=== PATIENT | female | born 1945 | race Caucasian/White ===

== ENCOUNTER 2020-01-15 12:06 | Emergency (ER) | payer OTHER ==
--- NOTE | 2020-01-15 13:02 | RAD REPORT ---
EXAM DESCRIPTION: RAD - Pelvis - 01/15/2020 12:46 pm CLINICAL HISTORY: TRAUMA COMPARISON: None FINDINGS: AP pelvis and left hip- multiple projections Lucency is seen in the inferior pubic ramus on the left, suspicious for nondisplaced. Left hip appear s intact.
[2020-01-15] MEDS ORDERED: HYDROCODONE/APAP 5/325 MG TAB ONE (13:45)
--- NOTE | 2020-01-15 14:18 | RAD REPORT ---
EXAM DESCRIPTION: RAD - Femur Left - 01/15/2020 2:09 pm CLINICAL HISTORY: PAIN COMPARISON: Hip Left 2 View dated 01/15/2020 FINDINGS: No fracture or dislocation is seen.
--- NOTE | 2020-01-15 14:26 | ER ---
Nurse's Notes [facility] Name: Deana Garland Age: 74 yrs Sex: Female : 1945 Arrival Date: 01/15/2020 Time: 12:06 Bed 13 Private MD: Mika Gong H Diagnosis: Fracture of other parts of pelvis-nondisplaced inferior pubic ramus fracture Presentation: 01/14 12:14 Chief complaint: Left hip pain after mechanical fall from standing 4 days ago. Unable hb to bear weight on left leg. Denies other injuries. Coronavirus screen: Proceed with normal triage. Ebola Screen: No symptoms or risks identified at this time. Initial Sepsis Screen: Does the patient meet any 2 criteria? No. Patient's initial sepsis screen is negative. Does the patient have a suspected source of infection? No. Patient's initial sepsis screen is negative. Risk Assessment: Do you want to hurt yourself or someone else? Patient reports no desire to harm self or others. Onset of symptoms was January 01, 2020. 12:14 Method Of Arrival: Wheelchair 12:14 Acuity: TRAVIS 3 hb 12:38 Care prior to arrival: None. Mechanism of Injury: Fall. Trauma event details: Injury ll1 occurred in the [facility]. Trauma Activation: Not Applicable Physician: ED Physician; Name: ; Notified At: ; Arrived At: Physician: General Surgeon; Name: ; Notified At: ; Arrived At: Physician: Radiology; Name: ; Notified At: ; Arrived At: Physician: Respiratory; Name: ; Notified At: ; Arrived At: Physician: Lab; Name: ; Notified At: ; Arrived At: 12:38 fall Sunday ll1 Historical: - Allergies: 12:17 Neosporin ([id number]); hb - Immunization history:: Adult Immunizations up to date. - Social history:: Smoking status: Patient denies any tobacco usage or history of. - Immunization history: Last tetanus immunization:. Screenin:30 Abuse screen: Denies threats or abuse. Nutritional screening: No deficits noted. ll1 Tuberculosis screening: No symptoms or risk factors identified. Fall Risk Fall in past 12 months (25 points). Ambulatory Aid- Crutches/Cane/Walker (15 pts). Gait- Impaired (20 pts.). Total Steward Fall Scale indicates High Risk Score (45 or more points). Fall prevention measures have been instituted. Side Rails Up X 2 Frequent Obs/Assessments Occuring As available patient and family educated on Fall Prevention Program and Strategies. Primary Survey: 12:30 NO uncontrolled hemorrhage observed. A: The patient is alert. Airway: patent, Trachea ll1 midline. Breathing/Chest: Respiratory pattern: regular, Respiratory effort: spontaneous, unlabored, Breath sounds: clear, Chest inspection: symmetrical rise and fall of the chest. Circulation: Pulses: palpable right radial artery, right posterior tibial artery, left radial artery and left posterior tibial artery. Skin color: pink, Skin temperature: warm. Disability Alert. Exposure/Environment: A warming method has been applied: A warm blanket has been provided to the patient. 14:00 Reassessment Breathing/Chest Respiratory pattern Regular Respiratory effort Spontaneous vc Breath sounds Clear Chest inspection Symmetrical Circulation Color [place] Temperature Warm Disability Alert. Assessment: 12:28 General: Appears in no apparent distress. Behavior is calm, cooperative. Pain: ll1 Complains of pain in left hip. Neuro: No deficits noted. Cardiovascular: No deficits noted. Respiratory: No deficits noted. Musculoskeletal: Circulation, motion, and sensation intact. Capillary refill < 3 seconds, Reports pain in left hip. Injury Description: fall. 13:25 Reassessment: Patient appears in no apparent distress at this time. No changes from ll1 previously documented assessment. Patient and/or family updated on plan of care and expected duration. Pain level reassessed. Patient is alert, oriented x 3, equal unlabored respirations, skin warm/dry/pink. 14:40 Reassessment: Patient appears in no apparent distress at this time. Patient and/or vc family updated on plan of care and expected duration. Pain level reassessed. Patient is alert, oriented x 3, equal unlabored respirations, skin warm/dry/pink. Discharge pending due to waiting on materials to bring a walker that is correct height. Patient states symptoms have improved. Vital Signs: 12:14 BP 122 / 83; Pulse 71; Resp 16; Temp 97.2; Pulse Ox 100% on R/A; Weight 79.38 kg; hb Height 5 ft. 7 in. (170.18 cm); Pain 10/10; 14:30 BP 120 / 80; Pulse 75; Resp 16; Pulse Ox 100% ; vc 12:14 Body Mass Index 27.41 (79.38 kg, 170.18 cm) hb Segundo Coma Score: 12:33 Eye Response: spontaneous(4). Verbal Response: oriented(5). Motor Response: obeys ll1 commands(6). Total: 15. Trauma Score (Adult): 12:33 Eye Response: spontaneous(1); Verbal Response: oriented(1); Motor Response: obeys ll1 commands(2); Systolic BP: > 89 mm Hg(4); Respiratory Rate: 10 to 29 per min(4); Segundo Score: 15; Trauma Score: 12 ED Course: 12:06 Patient arrived in ED. am2 12:07 Mika Gong MD is Private Physician. am2 12:13 Arturo Nicolas MD is Attending Physician. dorothy 12:15 Triage completed. hb 12:17 Arm band placed on. hb 12:27 Loli Gustafson RN is Primary Nurse. ll1 12:33 Patient has correct armband on for positive identification. Bed in low position. Call ll1 light in reach. Side rails up X 1. 12:38 Patient maintains SpO2 saturation greater than 95% on room air. Thermoregulation: warm ll1 blanket given to patient. 12:46 Pelvis XRAY In Process Unspecified. EDMS 12:46 Hip Left 2 View XRAY In Process Unspecified. EDMS 14:09 Femur Left XRAY In Process Unspecified. EDMS 14:25 Garry Rush MD is Referral Physician. dorothy 15:05 No provider procedures requiring assistance completed. Patient did not have IV access vc during this emergency room visit. Administered Medications: 13:59 Drug: Widen 5 mg-325 mg 1 tabs {Note: RASS 0.} Route: PO; ll1 14:45 Follow up: Response: No adverse reaction; Pain is decreased vc Outcome: 14:26 Discharge ordered by . dorothy 15:05 Discharged to home ambulatory, with walker vc 15:05 Condition: good 15:05 Discharge instructions given to patient, Instructed on discharge instructions, follow up and referral plans. the proper way to use a walker Demonstrated understanding of instructions, follow-up care, walking with a walker Prescriptions given X 1. 15:09 Patient left the ED. jp3 15:24 Patient's length of stay in the Emergency Department was greater than 2 hours. waiting vc on a walker to be delivered from materialsPatient's length of stay extended due to Signatures: Dispatcher [employer] EDArturo Oviedo MD MD cha Baxter, Heather RN RN Isa Blanco am2 Randy Santiago jp3 Zully Tillman RN RN vc Lewis, Lynsay, RN RN ll1 Corrections: (The following items were deleted from the chart) 12:22 12:14 Chief complaint: Left hip pain after fall from standing 4 days ago. Unable to hb bear weight on left leg. Denies other injuries. 15:20 14:00 Reassessment: Patient appears in no apparent distress at this time. Patient vc and/or family updated on plan of care and expected duration. Pain level reassessed. Patient is alert, oriented x 3, equal unlabored respirations, skin warm/dry/pink. Patient states symptoms have improved. vc
--- NOTE | 2020-01-15 14:27 | EDPHYS ---
Physician Documentation [facility] Name: Deana Garland Age: 74 yrs Sex: Female : 1945 Arrival Date: 01/15/2020 Time: 12:06 Bed 13 Private MD: Mika Gong H ED Physician Arturo Nicolas HPI: 01/14 12:28 This 74 yrs old Female presents to ER via Wheelchair with complaints of Fall dorothy Injury, Leg Pain. 12:28 Details of fall: The patient fell from an upright position, while walking. Onset: The dorotyh symptoms/episode began/occurred 3 day(s) ago. Associated injuries: The patient sustained left hip, left inner thigh and left upper thigh. Associated injuries: The patient sustained. Severity of symptoms: At their worst the symptoms were moderate, in the emergency department the symptoms are unchanged. The patient has not experienced similar symptoms in the past. Historical: - Allergies: 12:17 Neosporin ([id number]); hb - Immunization history:: Adult Immunizations up to date. - Social history:: Smoking status: Patient denies any tobacco usage or history of. - Immunization history: Last tetanus immunization:. ROS: 12:29 Constitutional: Negative for fever, chills, and weight loss, Eyes: Negative for injury, dorothy pain, redness, and discharge, ENT: Negative for injury, pain, and discharge, Neck: Negative for injury, pain, and swelling, Cardiovascular: Negative for chest pain, palpitations, and edema, Respiratory: Negative for shortness of breath, cough, wheezing, and pleuritic chest pain, Abdomen/GI: Negative for abdominal pain, nausea, vomiting, diarrhea, and constipation, Back: Negative for injury and pain, : Negative for injury, bleeding, discharge, and swelling, Skin: Negative for injury, rash, and discoloration, Neuro: Negative for headache, weakness, numbness, tingling, and seizure, Psych: Negative for depression, anxiety, suicide ideation, homicidal ideation, and hallucinations, Allergy/Immunology: Negative for hives, rash, and allergies, Endocrine: Negative for neck swelling, polydipsia, polyuria, polyphagia, and marked weight changes, Hematologic/Lymphatic: Negative for swollen nodes, abnormal bleeding, and unusual bruising. 12:29 MS/extremity: Positive for decreased range of motion, pain, tenderness, of the left femoral area and left hip. Exam: 12:29 Constitutional: This is a well developed, well nourished patient who is awake, alert, dorothy and in no acute distress. Head/Face: Normocephalic, atraumatic. Eyes: Pupils equal round and reactive to light, extra-ocular motions intact. Lids and lashes normal. Conjunctiva and sclera are non-icteric and not injected. Cornea within normal limits. Periorbital areas with no swelling, redness, or edema. ENT: Nares patent. No nasal discharge, no septal abnormalities noted. Tympanic membranes are normal and external auditory canals are clear. Oropharynx with no redness, swelling, or masses, exudates, or evidence of obstruction, uvula midline. Mucous membranes moist. Neck: Trachea midline, no thyromegaly or masses palpated, and no cervical lymphadenopathy. Supple, full range of motion without nuchal rigidity, or vertebral point tenderness. No Meningismus. Chest/axilla: Normal chest wall appearance and motion. Nontender with no deformity. No lesions are appreciated. Cardiovascular: Regular rate and rhythm with a normal S1 and S2. No gallops, murmurs, or rubs. Normal PMI, no JVD. No pulse deficits. Respiratory: Lungs have equal breath sounds bilaterally, clear to auscultation and percussion. No rales, rhonchi or wheezes noted. No increased work of breathing, no retractions or nasal flaring. Abdomen/GI: Soft, non-tender, with normal bowel sounds. No distension or tympany. No guarding or rebound. No evidence of tenderness throughout. Back: No spinal tenderness. No costovertebral tenderness. Full range of motion. Female : Normal external genitalia. Skin: Warm, dry with normal turgor. Normal color with no rashes, no lesions, and no evidence of cellulitis. Neuro: Awake and alert, GCS 15, oriented to person, place, time, and situation. Cranial nerves II-XII grossly intact. Motor strength 5/5 in all extremities. Sensory grossly intact. Cerebellar exam normal. Normal gait. Psych: Awake, alert, with orientation to person, place and time. Behavior, mood, and affect are within normal limits. 12:29 Musculoskeletal/extremity: Extremities: grossly normal except: noted in the left hip and left upper thigh and left femoral area and left leg: decreased ROM, pain, tenderness, ROM: limited active range of motion due to pain, limited passive range of motion due to pain, Circulation is intact in all extremities. Sensation intact. Compartment Syndrome exam of affected extremity: is normal. Weight bearing: is unable to bear weight, DVT Exam: no swelling, negative Homans' sign noted on exam, no appreciated bluish discoloration, no erythema, no increased warmth, pain, tenderness. Vital Signs: 12:14 BP 122 / 83; Pulse 71; Resp 16; Temp 97.2; Pulse Ox 100% on R/A; Weight 79.38 kg; hb Height 5 ft. 7 in. (170.18 cm); Pain 10/10; 14:30 BP 120 / 80; Pulse 75; Resp 16; Pulse Ox 100% ; vc 12:14 Body Mass Index 27.41 (79.38 kg, 170.18 cm) hb [place] Coma Score: 12:33 Eye Response: spontaneous(4). Verbal Response: oriented(5). Motor Response: obeys ll1 commands(6). Total: 15. Trauma Score (Adult): 12:33 Eye Response: spontaneous(1); Verbal Response: oriented(1); Motor Response: obeys ll1 commands(2); Systolic BP: > 89 mm Hg(4); Respiratory Rate: 10 to 29 per min(4); Segundo Score: 15; Trauma Score: 12 MDM: 12:17 Patient medically screened. [facility] 12:34 Differential diagnosis: hip fracture, intertrochanteric fracture, femoral neck dorothy fracture, bursitis, arthritis, strain. Differential diagnosis: closed head injury, fracture, sprain, strain. Data interpreted: monitoring specialist: not applicable for this patient encounter. Test interpretation: by ED physician or midlevel provider: plain radiologic studies. ED course: fall on Sunday , slipped in kitchen, not been able to bear weight since Sunday, hit head too , no loc, no blood thinners, no neck pain. 12:36 Data reviewed: radiologic studies, plain films. [facility] 13:28 ED course: inferior pubic ramus fx, non displaced, dw pt and walker use, know to follow dorothy up. 14:24 Counseling: I had a detailed discussion with the patient and/or guardian regarding: the [facility] historical points, exam findings, and any diagnostic results supporting the discharge/admit diagnosis, radiology results, the need for outpatient follow up. ED course: pt uses walker without difficulty, ambulates good, stable, will follow up , informed. 01/14 12:27 Order name: Pelvis XRAY; Complete Time: 13:31 [facility] 01/14 12:27 Order name: Hip Left 2 View XRAY [facility] 01/14 13:21 Order name: Femur Left XRAY [facility] 01/14 13:22 Order name: Misc. Order: walker, walk patient; Complete Time: 14:00 [facility] 01/14 13:30 Order name: Misc. Order: ambulate pt with walker; Complete Time: 14:50 [facility] Administered Medications: 13:59 Drug: Sherrill 5 mg-325 mg 1 tabs {Note: RASS 0.} Route: PO; ll1 14:45 Follow up: Response: No adverse reaction; Pain is decreased vc Disposition: 01/15/20 14:26 Discharged to Home. Impression: Fracture of other parts of pelvis - nondisplaced inferior pubic ramus fracture. - Condition is Stable. - Discharge Instructions: Simple Pelvic Fracture, Adult. - Prescriptions for Tylenol- Codeine #3 300-30 mg Oral Tablet - take 2 tablets by ORAL route every 6 hours As needed; 24 tablet. - Medication Reconciliation Form, Thank You Letter, Antibiotic Education, Prescription Opioid Use form. - Follow up: Private Physician; When: 2 - 3 days; Reason: Recheck today's complaints, Continuance of care, Re-evaluation by your physician. Follow up: Garry Rush; When: 2 - 3 days; Reason: Recheck today's complaints, Re-evaluation by your physician. - Problem is new. - Symptoms have improved. Signatures: Dispatcher [employer] EDMS Arturo Nicolas MD MD cha Mickail, Joel, PA PA jmm Baxter, Heather, RN RN hb Pisarski, Jacob 3 Zully Tillman RN RN vc Lewis, Lynsay, RN RN ll1 Corrections: (The following items were deleted from the chart) 15:09 14:26 01/15/2020 14:26 Discharged to Home. Impression: Fracture of other parts of jp3 pelvis - nondisplaced inferior pubic ramus fracture. Condition is Stable. Discharge Instructions: Simple Pelvic Fracture, Adult. Prescriptions for Tylenol-Codeine #3 300-30 mg Oral Tablet - take 2 tablets by ORAL route every 6 hours As needed; 24 tablet. and Forms are Medication Reconciliation Form, Thank You Letter, Antibiotic Education, Prescription Opioid Use. Follow up: Private Physician; When: 2 - 3 days; Reason: Recheck today's complaints, Continuance of care, Re-evaluation by your physician. Follow up: Garry Rush; When: 2 - 3 days; Reason: Recheck today's complaints, Re-evaluation by your physician. Problem is new. Symptoms have improved. dorothy
[2020-01-15 15:20] VITALS: BP 122/83; TEMP 97.2; O2SAT 100
--- NOTE | 2020-01-18 10:56 | RAD REPORT ---
EXAM DESCRIPTION: RAD - Hip Left 2 View - 01/15/2020 12:46 pm CLINICAL HISTORY: TRAUMA COMPARISON: None FINDINGS: AP pelvis and left hip- multiple projections Lucency is seen in the inferior pubic ramus on the left, suspicious for nondisplaced. Left hip appear s intact.
== END 2020-01-15 15:09 | disposition home or self-care (01) ==
LOC: ER 12:06
DX: S32.592A Other specified fracture of left pubis, initial encounter for closed fracture (principal); W19.XXXA Unspecified fall, initial encounter; Y93.01 Activity, walking, marching and hiking; Y92.9 Unspecified place or not applicable; Z88.3 Allergy status to other anti-infective agents
CPT/HCPCS: 72170; 99284

== ENCOUNTER 2020-12-01 19:19 | Emergency (ER) | payer OTHER ==
[2020-12-01 22:45] LABS: Basophils % 0.3 % (0-1.3); Hematocrit 43.1 % (36.0-45.0); Lymphocytes % 6.7 % (15.3-44.8); MPV 8.1 fL (7.6-11.3); RBC Red Blood Cell Count 4.87 M/uL (3.86-4.86)
[2020-12-01 23:04] LABS: Protime INR 0.96
[2020-12-01 23:11] LABS: ALT/SGPT 18 U/L (12-78); AST/SGOT 12 U/L (15-37); BUN Blood Urea Nitrogen 8 mg/dL (7-18); Bicarbonate 24 mmol/L (21-32); Bilirubin Direct 0.1 mg/dL (0-0.2); Bilirubin Total 0.5 mg/dL (0.2-1.0); Glucose Level 102 mg/dL (74-106); Lipase 75 U/L (73-393); Potassium 3.9 mmol/L (3.5-5.1); Protein, Total 7.5 g/dL (6.4-8.2); Sodium Level 137 mmol/L (136-145)
[2020-12-01 23:12] LABS: Alkaline Phosphatase ND U/L (45-117)
[2020-12-01] MEDS ORDERED: NA CHLORIDE 0.9% 500 ML ONE (23:13)
[2020-12-01] MEDS ORDERED: MORPHINE 2 MG/ML SYR ONE (23:13)
[2020-12-01] MEDS ORDERED: ONDANSETRON 4 MG/2 ML VIAL ONE (23:13)
[2020-12-02] MEDS ORDERED: METRONIDAZOLE 500mg IVPB 500 MG/100 ML BAG IV ONE (00:42)
[2020-12-02] MEDS ORDERED: CIPROFLOXACIN 400mg IV 400 MG/200 ML BAG IV ONE (00:42)
--- NOTE | 2020-12-02 00:56 | ER ---
Nurse's Notes [facility] Name: Deana Garland Age: 75 yrs Sex: Female : 1945 Arrival Date: 12/01/2020 Time: 19:21 Bed 2 Private MD: Diagnosis: Gastrointestinal hemorrhage, unspecified;Left sided colitis Presentation: 12/01 19:49 Chief complaint: Patient states: Abdominal cramping, runny stool with N/V. Bright red ll1 blood in stool getting significantly worse with each BM. Major sweating during vomiting episodes. No known fever. Coronavirus screen: Client denies travel out of the [place] in the last 14 days. At this time, the client does not indicate any symptoms associated with coronavirus-19. Ebola Screen: Patient denies travel to an Ebola-affected area in the 21 days before illness onset. Initial Sepsis Screen: Does the patient meet any 2 criteria? No. Patient's initial sepsis screen is negative. Does the patient have a suspected source of infection? Yes: Acute abdominal pain. Risk Assessment: Do you want to hurt yourself or someone else? Patient reports no desire to harm self or others. Onset of symptoms was December 01, 2020. 19:49 Method Of Arrival: Ambulatory ll1 19:49 Acuity: TRAVIS 3 ll1 Triage Assessment: 23:02 General: Appears comfortable, Behavior is calm, cooperative. Pain: Complains of pain in rv abdomen. Neuro: Level of Consciousness is awake, alert, obeys commands, Oriented to person, place, time, situation. Cardiovascular: Patient's skin is warm and dry. Respiratory: Airway is patent. GI: No deficits noted. Historical: - Allergies: 19:54 No Known Allergies; ll1 - PMHx: 19:54 Hypertension; High Cholesterol; Hypothyroidism; GERD; restless legs; Glaucoma; ll1 - PSHx: 19:54 eye sx-cleanup laser sx; catarct repair; ll1 - Immunization history:: Flu vaccine is up to date. - Social history:: Smoking status: Patient denies any tobacco usage or history of. Screenin:01 Abuse screen: Denies threats or abuse. Denies injuries from another. Nutritional rv screening: No deficits noted. Tuberculosis screening: No symptoms or risk factors identified. Fall Risk None identified. Assessment: 23:02 GI: Bowel sounds present X 4 quads. Abd is soft and non tender X 4 quads. rv 23:02 Reassessment: NORBERTO CORREA AT BEDSIDE WITH VINCENT CARRILLO FOR RECTAL EXAM. 12/02 00:30 Reassessment: Patient appears in no apparent distress at this time. Patient and/or wh family updated on plan of care and expected duration. Pain level reassessed. Patient is alert, oriented x 3, equal unlabored respirations, skin warm/dry/pink. Provider at bedside explaining POC need for transfer. 02:00 Reassessment: Patient appears in no apparent distress at this time. Patient and/or wh family updated on plan of care and expected duration. Pain level reassessed. Patient is alert, oriented x 3, equal unlabored respirations, skin warm/dry/pink. 03:30 Reassessment: Patient appears in no apparent distress at this time. Patient and/or wh family updated on plan of care and expected duration. Pain level reassessed. Patient is alert, oriented x 3, equal unlabored respirations, skin warm/dry/pink. 03:46 Reassessment: Report given to Destini Vieyra RN. Vital Signs: 12/01 19:49 BP 136 / 80; Pulse 73; Resp 17; Temp 98.3; Pulse Ox 99% ; Weight 77.11 kg; Height 5 ft. ll1 6 in. (167.64 cm); Pain 8/10; 12/02 00:00 BP 137 / 66; Pulse 62; Resp 18; Pulse Ox 99% on R/A; 01:30 BP 139 / 65; Pulse 61; Resp 18; Pulse Ox 99% on R/A; 03:00 BP 149 / 77; Pulse 56; Resp 18; Pulse Ox 99% on R/A; wh 04:42 BP 135 / 66; Pulse 62; Resp 16; Temp 98; Pulse Ox 98% on R/A; rv 12/01 19:49 Body Mass Index 27.44 (77.11 kg, 167.64 cm) ll1 ED Course: 12/01 19:21 Patient arrived in ED. cl3 19:52 Triage completed. ll1 19:55 Arm band placed on. ll1 21:57 [facility] cp 21:57 Vincent Nicolas MD is Attending Physician. cp 22:28 Antoni Yu, MADELINE is Primary Nurse. rv 22:49 Initial lab(s) drawn, by nd, sent to lab. Inserted saline lock: 20 gauge in right rv antecubital area, using aseptic technique. Blood collected. 23:01 Patient has correct armband on for positive identification. Pulse ox on. NIBP on. rv 23:51 CT Abd/Pelvis - IV Contrast Only In Process Unspecified. EDDC 12/02 01:30 initiated a transfer with Namrata Dior from [facility]. mw2 01:52 doc to doc with the GI specialist from [facility]. mw2 03:26 administrative approval given by Namrata Dior/ patient has been accepted to [address] 4th floor A402/ Dr. Leal has accepted the patient in transfer/ report to be called to [phone]. 04:42 No provider procedures requiring assistance completed. IV is patent, with fluids rv infusing freely, Patient transferred, IV remains in place. Administered Medications: 12/01 23:00 Drug: morphine 2 mg Route: IVP; Site: right antecubital; 12/02 03:36 Follow up: Response: No adverse reaction; Pain is decreased; RASS: Alert and Calm (0) 12/01 23:01 Drug: NS 0.9% 500 ml Route: IV; Rate: bolus; Site: right antecubital; 12/02 03:37 Follow up: Response: No adverse reaction; IV Status: Completed infusion 12/01 23:01 Drug: Zofran (Ondansetron) 4 mg Route: IVP; Site: right antecubital; 12/02 03:36 Follow up: Response: No adverse reaction; Nausea is decreased 00:47 Drug: metroNIDAZOLE 500 mg Volume: 100 ml; Route: IVPB; Infused Over: 30 mins; Site: right antecubital; 01:20 Follow up: Response: No adverse reaction; IV Status: Completed infusion 01:20 Drug: Cipro (ciprofloxacin) 400 mg Volume: 200 ml; Route: IVPB; Infused Over: 60 mins; Site: right antecubital; 03:36 Follow up: Response: No adverse reaction; IV Status: Completed infusion Outcome: 00:55 ER care complete, transfer ordered by MD. hernandez 04:42 Transferred by ground EMS to other acute care facility: [facility]. Transfer rv form completed. X-rays sent w/ patient. 04:42 Condition: good 04:42 Instructed on the need for transfer. 04:46 Patient left the ED. rv Signatures: Dispatcher [employer] EDMS Vincent Carrillo PA PA cp Habalo, Winsy, RN RN Terrie Herring mw2 Antoni Yu RN RN Jeannine Munoz 3 Loli Gustafson RN RN ll1
--- NOTE | 2020-12-02 00:56 | EDPHYS ---
Physician Documentation [facility] Name: Deana Garland Age: 75 yrs Sex: Female : 1945 Arrival Date: 12/01/2020 Time: 19:21 Bed 2 Private MD: ED Physician Arturo Nicolas HPI: 12/01 22:20 This 75 yrs old Female presents to ER via Ambulatory with complaints of cp Abdominal Cramping, Bloody Stools. 22:20 The patient presents to the emergency department with rectal bleeding, a moderate cp amount, bright red blood with bowel movement, in toilet bowl, with multiple such episodes. Onset: The symptoms/episode began/occurred this morning. Abdominal pain: described as crampy, located in the abdomen diffusely. Associated signs and symptoms: Pertinent positives: diarrhea, Pertinent negatives: chest pain, constipation, fever, syncope. Severity of symptoms: in the emergency department the symptoms are unchanged despite home interventions. Historical: - Allergies: 19:54 No Known Allergies; ll1 - PMHx: 19:54 Hypertension; High Cholesterol; Hypothyroidism; GERD; restless legs; Glaucoma; ll1 - PSHx: 19:54 eye sx-cleanup laser sx; catarct repair; ll1 - Immunization history:: Flu vaccine is up to date. - Social history:: Smoking status: Patient denies any tobacco usage or history of. ROS: 22:25 Constitutional: Negative for body aches, chills, fever, poor PO intake. cp 22:25 Eyes: Negative for injury, pain, redness, and discharge. cp 22:25 Cardiovascular: Negative for chest pain. 22:25 Respiratory: Negative for cough, shortness of breath, wheezing. 22:25 Abdomen/GI: Positive for abdominal pain, nausea, diarrhea, rectal bleeding, Negative for constipation, black/tarry stool, active vomiting. 22:25 : Negative for urinary symptoms. 22:25 Neuro: Negative for altered mental status, headache, weakness. 22:25 All other systems are negative. Exam: 22:30 Constitutional: The patient appears in no acute distress, alert, awake, non-toxic, well cp developed, well nourished. 22:30 Head/Face: Normocephalic, atraumatic. cp 22:30 Eyes: Periorbital structures: appear normal, Conjunctiva: normal, no exudate, no injection, Sclera: no appreciated abnormality, Lids and lashes: appear normal, bilaterally. 22:30 ENT: 22:30 Chest/axilla: Inspection: normal, Palpation: is normal, no crepitus, no tenderness. 22:30 Cardiovascular: Rate: normal, Rhythm: regular. 22:30 Respiratory: the patient does not display signs of respiratory distress, Respirations: normal, no use of accessory muscles, no retractions, labored breathing, is not present, Breath sounds: are clear throughout, no decreased breath sounds, no stridor, no wheezing. 22:30 Abdomen/GI: Inspection: abdomen appears normal, Bowel sounds: active, all quadrants, Palpation: soft, in all quadrants, moderate abdominal tenderness, in all quadrants, rebound tenderness, is not appreciated, voluntary guarding, is elicited in all quadrants. 22:30 Back: pain, is absent, ROM is normal. 22:30 Neuro: Orientation: to person, place \T\ time. Mentation: is normal, Motor: moves all fours, strength is normal, Gait: is steady. Vital Signs: 19:49 BP 136 / 80; Pulse 73; Resp 17; Temp 98.3; Pulse Ox 99% ; Weight 77.11 kg; Height 5 ft. ll1 6 in. (167.64 cm); Pain 8/10; 12/02 00:00 BP 137 / 66; Pulse 62; Resp 18; Pulse Ox 99% on R/A; wh 01:30 BP 139 / 65; Pulse 61; Resp 18; Pulse Ox 99% on R/A; wh 03:00 BP 149 / 77; Pulse 56; Resp 18; Pulse Ox 99% on R/A; wh 04:42 BP 135 / 66; Pulse 62; Resp 16; Temp 98; Pulse Ox 98% on R/A; rv 12/01 19:49 Body Mass Index 27.44 (77.11 kg, 167.64 cm) ll1 MDM: 12/01 21:59 Patient medically screened. dorothy 23:00 Differential diagnosis: diverticulitis, colitis, anemia. cp 12/02 00:05 Data reviewed: vital signs, nurses notes, lab test result(s), radiologic studies, CT cp scan, I have discussed the patient's presentation/case with the attending Emergency Department Physician;. 12/01 22:05 Order name: Basic Metabolic Panel; Complete Time: 23:38 cp 12/01 23:38 Interpretation: Normal except: GFR 75. cp 12/01 22:05 Order name: CBC with Diff; Complete Time: 01:58 cp 12/01 23:39 Interpretation: Normal except: WBC 15.40; RBC 4.87; ANTHONY% 85.1; LYM% 6.7; NEUT A 13.1. cp 12/01 22:05 Order name: Hepatic Function; Complete Time: 23:38 cp 12/01 23:38 Interpretation: Reviewed. cp 12/01 22:05 Order name: Lipase; Complete Time: 23:38 cp 12/01 22:06 Order name: PT-INR; Complete Time: 23:38 cp 12/01 22:06 Order name: Ptt, Activated; Complete Time: 23:38 cp 12/01 22:44 Order name: CT Abd/Pelvis - IV Contrast Only 12/01 22:55 Order name: Manual Differential; Complete Time: 01:58 EDMS 12/02 01:55 Order name: SARS-COV-2 RT PCR; Complete Time: 01:58 EDMS 12/01 22:05 Order name: IV Saline Lock; Complete Time: 22:49 cp 12/01 22:05 Order name: Labs collected and sent; Complete Time: 22:49 cp Administered Medications: 12/01 23:00 Drug: morphine 2 mg Route: IVP; Site: right antecubital; 12/02 03:36 Follow up: Response: No adverse reaction; Pain is decreased; RASS: Alert and Calm (0) 12/01 23:01 Drug: NS 0.9% 500 ml Route: IV; Rate: bolus; Site: right antecubital; 12/02 03:37 Follow up: Response: No adverse reaction; IV Status: Completed infusion 12/01 23:01 Drug: Zofran (Ondansetron) 4 mg Route: IVP; Site: right antecubital; 12/02 03:36 Follow up: Response: No adverse reaction; Nausea is decreased 00:47 Drug: metroNIDAZOLE 500 mg Volume: 100 ml; Route: IVPB; Infused Over: 30 mins; Site: right antecubital; 01:20 Follow up: Response: No adverse reaction; IV Status: Completed infusion 01:20 Drug: Cipro (ciprofloxacin) 400 mg Volume: 200 ml; Route: IVPB; Infused Over: 60 mins; Site: right antecubital; 03:36 Follow up: Response: No adverse reaction; IV Status: Completed infusion Disposition: 06:48 Co-signature as Attending Physician, Arturo Nicolas MD I agree with the assessment and dorothy plan of care. Disposition: 12/02/20 00:[address] [facility]. Diagnosis are Gastrointestinal hemorrhage, unspecified, Left sided colitis. - Reason for transfer: Higher level of care. - Accepting physician is DR Leal. - Condition is Stable. - Problem is new. - Symptoms have improved. Signatures: Dispatcher [employer] EDMT Arturo Nicolas MD MD cha Page, Corey, PA PA cp Cristian Bucio, RN RN Antoni Yu RN RN rv Loli Gustafson RN RN ll1 Corrections: (The following items were deleted from the chart) 00:57 00:36 CORONAVIRUS+MR.LAB.BRZ ordered. [facility] EDMT 03:20 00:55 12/02/2020 00:[address] [facility]. cp Diagnosis is Gastrointestinal hemorrhage, unspecified; Left sided colitis. Reason for transfer: Higher level of care. Accepting physician is Doctor. Condition is Stable. Problem is new. Symptoms have improved. cp 04:46 03:20 12/02/2020 00:[address] [facility]. rv Diagnosis is Gastrointestinal hemorrhage, unspecified; Left sided colitis. Reason for transfer: Higher level of care. Accepting physician is DR Leal. Condition is Stable. Problem is new. Symptoms have improved. cp
[2020-12-02 01:28] LABS: Blood Morphology Comment NOT SEEN (NOT SEEN); Platelet Estimate ADEQ
[2020-12-02 04:58] VITALS: BP 135/66; TEMP 98; O2SAT 98
--- NOTE | 2020-12-02 09:45 | RAD REPORT ---
EXAM DESCRIPTION: Abdomen Pelvis W Contrast 12/01/2020 11:57 PM CDT CLINICAL HISTORY: 75 years, Female, ABD PAIN COMPARISON: 08/02/2018. TECHNIQUE: Contrast-enhanced images of the abdomen and pelvis were performed utilizing 2 mm slice th ickness at 2 mm interval reconstruction from the lung bases to the ischial tuberosities after the adm inistration of IV contrast. No dosing amount was provided for interpretation, also likely portal veno us phase was provided for interpretation. In addition multiplanar reformats in the coronal and sagittal plane were obtained and reviewed. An individualized dose optimization technique, Automated Exposure Control, was utilized for the perfo rmed procedure. FINDINGS: The lung bases demonstrate to be clear. The liver, gallbladder, pancreas, spleen and adrenal glands demonstrate to be unremarkable, no focal lesions are noted. The kidneys demonstrate normal uptake of contrast media. No nephrolithiasis and/or hydronephrosis w as identified. Grossly the unopacified stomach and small bowel demonstrate to be within normal limits. There is unde rdistention of the large bowel. There is no evidence for free air. There is abnormal mucosal thicke robert and minimal enhancement along the left site colon from the level of the splenic flexure minimall y along the sigmoid colon findings are suspicious for bacterial colitis less likely regional enteriti s is considered. The appendix is normal. The urinary bladder demonstrate to be unremarkable. The uterus is unremarkable. There are no adnexa l masses. The aorta demonstrate minimal atheromatous plaque formation. Incidentally is noted presen ce of retroaortic left renal vein. There is no retroperitoneal lymphadenopathy. There is no evidenc e for ascites and/or significant abnormal fluid collections. The rest of the soft tissue and bony str uctures are within normal limits. IMPRESSION: Abnormal mucosal thickening and minimal enhancement along the left site colon from the l evel of the splenic flexure minimally along the sigmoid colon findings are suspicious for bacterial c olitis and/or pseudomembranous colitis, less likely regional enteritis. Electronically signed by: Scot Kruse MD 12/02/2020 12:01 AM CDT Due to temporary technical issues with the PACS/Fluency reporting system, reports are being signed by the in house radiologist without review as a courtesy to ensure prompt reporting. The interpreting r adiologist is fully responsible for the content of the report.
== END 2020-12-02 04:46 | disposition short-term general hospital (02) ==
LOC: ER 19:19
DX: K51.50 Left sided colitis without complications (principal); Z20.822 Contact with and (suspected) exposure to COVID-19; I10 Essential (primary) hypertension
CPT/HCPCS: 96365; 96367; 96361; 85025; 80048; 36415; 85610; 80076; 85730; 83690; 74177; 96375; 99285; 96366; U0003; Q9967; J2270; J7040; J2405; J0744

== ENCOUNTER 2021-05-04 07:41 | Day surgery (SDC) | payer OTHER ==
[2021-05-02 15:46] LABS: Absolute Lymphocytes (CBC) 1.5 K/uL (0.7-4.9); Basophils % 0.5 % (0-1.3); Hematocrit 42.1 % (36.0-45.0); MPV 7.3 fL (7.6-11.3); RBC Red Blood Cell Count 4.79 M/uL (3.86-4.86)
[2021-05-02 15:56] LABS: BUN Blood Urea Nitrogen 7 mg/dL (7-18); Bicarbonate 28 mmol/L (21-32); Glucose Level 89 mg/dL (74-106); Potassium 4.1 mmol/L (3.5-5.1); Sodium Level 133 mmol/L (136-145)
--- NOTE | 2021-05-02 16:24 | RAD REPORT ---
EXAM DESCRIPTION: RAD - Chest Pa And Lat (2 Views) - 05/02/2021 3:55 pm CLINICAL HISTORY: preop COMPARISON: CHEST PA AND LAT 2 VIEW dated 03/22/2015 FINDINGS: No evidence of edema or pneumonia. The heart size is within normal limits.No acute osseous abnormality. No significant pleural effusions or pneumothorax. IMPRESSION: No acute cardiopulmonary disease.
--- NOTE | 2021-05-03 16:57 | EKG ---
Test Date: 2021-05-02 Test Time: 14:35:13 Can Bander Operator: KAREN MEASUREMENT RESULTS: Intervals: Rate: 59 AL: 128 QRSD: 78 QT: 416 QTc: 411 [place]: P: 46 AL: 128 QRS: 34 T: 65 INTERPRETIVE STATEMENTS: Sinus bradycardia Otherwise normal ECG Compared to ECG 03/29/2004 09:16:00 ST (T wave) deviation no longer present Electronically Signed On 05-03-21 16:53:47 CDT by Barron Lucio
[2021-05-04] MEDS ORDERED: Ringers Lactate 1,000 ML IV ONE ×2 (08:41→13:46)
[2021-05-04] MEDS ORDERED: CEFOXITIN/SWI 1gm 1 GM/10 ML SYR ONE (08:42)
[2021-05-04] MEDS ORDERED: BUPIVACAINE 0.5% PF 10 ML VIAL ONE (12:23)
[2021-05-04] MEDS ORDERED: dexAMETHasone 10 MG/ML VIAL ONE (12:34)
[2021-05-04] MEDS ORDERED: ONDANSETRON 4 MG/2 ML VIAL ONE ×2 (12:34→14:32)
[2021-05-04] MEDS ORDERED: ROCURONIUM 50 MG/5 ML VIAL IV ONE (12:59)
[2021-05-04] MEDS ORDERED: FENTANYL CITR 100 MCG/2 ML ONE (12:59)
[2021-05-04] MEDS ORDERED: propofoL 200 MG/20 ML VIAL IV ONE (12:59)
[2021-05-04] MEDS ORDERED: LIDOCAINE 2% MPF 5 ML VIAL ONE (12:59)
[2021-05-04] MEDS ORDERED: GLYCOPYRROLATE 0.2 MG/ML SYR ONE ×2 (13:25→13:28)
[2021-05-04] MEDS ORDERED: KETOROLAC 30 MG/ML INJ ONE (13:57)
[2021-05-04 14:17] VITALS: TEMP 97
[2021-05-04] MEDS ORDERED: MEPERIDINE HCL 25 MG/ML SYR ONE (14:24)
[2021-05-04] MEDS ORDERED: HYDROCODONE/APAP 7.5/325 MG TAB ONE (15:19)
[2021-05-04 16:18] VITALS: BP 151/65; O2SAT 96
--- NOTE | 2021-05-05 02:49 | OP ---
Date of Procedure: 05/04/2021 Surgeon: Ronald Wall MD Biometric Fingerprinting Technician: MITCH Verma. Preoperative Diagnosis: Chronic cholecystitis and biliary dyskinesia. Postoperative Diagnosis: Chronic cholecystitis and biliary dyskinesia with extensive right-sided adh esions. Procedure Performed: Laparoscopic cholecystectomy and laparoscopic lysis of adhesions. Estimated Blood Loss: Minimal. Specimen: Gallbladder. Findings: As above. Anesthesia: General. Complications: None. Disposition: The patient tolerated the procedure in stable condition and taken to Recovery in good g eneral condition. Procedure In Detail: The patient was brought to the OR and placed in supine position. General anest hesia begun. The patient was prepped and draped in the usual sterile fashion. Marcaine 0.5% was inf iltrated locally. A 15-blade was used to make a 1 cm infraumbilical midline incision. Subcutaneous tissue was divided. Fascia identified and divided. #1 Vicryl stay suture was placed. Peritoneal ca vity was entered with sharp and blunt dissection. A 12 mm trocar was placed into the peritoneal cavi ty under direct vision. Pneumoperitoneum was established and then three 5 mm trocars were placed, 1 in the epigastrium just to the right of midline and 2 in the right subcostal region. The 2 in the ri t subcostal region had to be placed later in this case as the patient had extensive adhesions on th e right upper quadrant, right middle quadrant and above the liver as well, and these were lysed with LigaSure and sharp dissection and all the adhesions were taken down. Then two 5 mm trocars were plac ed and then the fundus of the gallbladder was identified and retracted inferolaterally. Cystic duct and cystic artery were clearly identified and divided between clips and then cautery was used to deven ve the gallbladder from the liver bed. Bleeding on the liver bed was controlled with cautery. Gallb ladder was retrieved through the umbilicus via an EndoCatch bag. Right upper quadrant was irrigated. Effluent was clear. No evidence of bleeding or bile leakage appreciated. Subsequently, all trocar s were removed under direct vision. Stay sutures were tied to each other to approximate the fascial defect. Subcutaneous wounds were irrigated. Bleeding was controlled with cautery. A 3-0 chromic wa s used to approximate the subcutaneous tissue and close the skin. Sterile dressing applied. The pat ient was awakened and taken to Recovery in good general condition. Discharge Note: The patient will go to day surgery and home when stable. Disposition: Home. Condition: Stable. Discharge Instructions: Resume home medications and diet. Activity as tolerated. No heavy lifting. Remove outer dressing in 2 days. Shower. Keep wound clean and dry. Keep Steri-Strips on at all t imes. Follow up in my office in a week. Call for appointment. Tylenol No. 3 one tablet p.o. q.4 p. r.n. pain. /MODL Voice ID: [id number] Report ID: [id number]
== END 2021-05-04 15:41 | disposition home or self-care (01) ==
LOC: OR 07:41
PROVIDERS: ATTEND Surgery
PROC: 0DNW4ZZ Release Peritoneum, Percutaneous Endoscopic Approach (ICD-10-PCS; 2021-05-04)
PROC: 0FT44ZZ Resection of Gallbladder, Percutaneous Endoscopic Approach (ICD-10-PCS; principal; 2021-05-04 08:45)
DX: K81.1 Chronic cholecystitis (principal); K82.8 Other specified diseases of gallbladder; K66.0 Peritoneal adhesions (postprocedural) (postinfection); Z20.822 Contact with and (suspected) exposure to COVID-19
CPT/HCPCS: 93005; 85025; 80048; 36415; 88304; 71046; 47562; 49329; U0003; J2704; J3010; J1100; J2175; J7120 ×2; J2405 ×2